=== PATIENT | female | born 1990 | race Caucasian/White ===

== ENCOUNTER 2020-12-16 23:34 | Emergency (ER) | payer OTHER ==
[2020-12-17 01:21] LABS: Urine Blood Negative (Negative); Urine Glucose Negative (Negative); Urine Protein Negative (Negative); Urine Specific Gravity >=1.030 (1.005-1.030); Urine pH 5.5 (5.0-7.0)
[2020-12-17 01:31] LABS: Urine Specific Gravity/Preg >1.030 (1.005-1.030)
[2020-12-17 02:21] LABS: Absolute Lymphocytes (CBC) 1.2 K/uL (0.7-4.9); Basophils % 0.2 % (0-1.3); Hematocrit 38.3 % (36.0-45.0); Lymphocytes % 17.1 % (15.3-44.8); MPV 9.5 fL (7.6-11.3)
[2020-12-17 02:58] LABS: BUN Blood Urea Nitrogen 6 mg/dL (7-18); Bicarbonate 25 mmol/L (21-32); Glucose Level 100 mg/dL (74-106); HCG, Quantitative 46935 mIU/mL (1-3); Potassium 3.4 mmol/L (3.5-5.1); Sodium Level 138 mmol/L (136-145)
--- NOTE | 2020-12-17 03:08 | EDPHYS ---
Physician Documentation [facility] Name: Jose Wylie Age: 30 yrs Sex: Female : 1990 Arrival Date: 12/16/2020 Time: 23:37 Bed 8 Private MD: ED Physician Adelfo Young HPI: 12/17 02:11 This 30 yrs old Female presents to ER via Ambulatory with complaints of mh7 Abdominal Cramping, +Preg <12 weeks. 02:11 The patient presents to the emergency department with abdominal pain, of the suprapubic mh7 area, right lower quadrant and left lower quadrant, that started yesterday, described as crampy, intermittent, waxing/waning. The estimated gestational age is 10 weeks. course: care: at a clinic, Leakage of Fluid: none appreciated, Ultrasound: the patient had an ultrasound, Risk/complications: previous complications- multiple miscarriages. Previous pregnancies: in previous pregnancies patient has had. Associated signs and symptoms: Pertinent positives: nausea, Pertinent negatives: chest pain, diarrhea, dysuria, fever, frequency, ruptured membranes, seizure, shortness of breath, vaginal bleeding, vaginal discharge, vomiting. 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 - Social history:: Smoking status: Patient denies any tobacco usage or history of. ROS: 12/17 02:11 Constitutional: Negative for fever, chills, and weight loss, Eyes: Negative for injury, mh7 pain, redness, and discharge, ENT: Negative for injury, pain, and discharge, Neck: Negative for injury, pain, and swelling, Cardiovascular: Negative for chest pain, palpitations, and edema, Respiratory: Negative for shortness of breath, cough, wheezing, and pleuritic chest pain, Back: Negative for injury and pain, : Negative for injury, bleeding, discharge, and swelling, MS/Extremity: Negative for injury and deformity, Skin: Negative for injury, rash, and discoloration, Neuro: Negative for headache, weakness, numbness, tingling, and seizure, Psych: Negative for depression, anxiety, suicide ideation, homicidal ideation, and hallucinations, Allergy/Immunology: Negative for hives, rash, and allergies, Endocrine: Negative for neck swelling, polydipsia, polyuria, polyphagia, and marked weight changes, Hematologic/Lymphatic: Negative for swollen nodes, abnormal bleeding, and unusual bruising. Exam: 02:11 Constitutional: This is a well developed, well nourished patient who is awake, alert, mh7 and in no acute distress. Head/Face: Normocephalic, atraumatic. Eyes: Pupils equal round and reactive to light, extra-ocular motions intact. Lids and lashes normal. Conjunctiva and sclera are non-icteric and not injected. Cornea within normal limits. Periorbital areas with no swelling, redness, or edema. Neck: Trachea midline, no thyromegaly or masses palpated, and no cervical lymphadenopathy. Supple, full range of motion without nuchal rigidity, or vertebral point tenderness. No Meningismus. Chest/axilla: Normal chest wall appearance and motion. Nontender with no deformity. No lesions are appreciated. Cardiovascular: Regular rate and rhythm with a normal S1 and S2. No gallops, murmurs, or rubs. Normal PMI, no JVD. No pulse deficits. Respiratory: Lungs have equal breath sounds bilaterally, clear to auscultation and percussion. No rales, rhonchi or wheezes noted. No increased work of breathing, no retractions or nasal flaring. Abdomen/GI: Soft, non-tender, with normal bowel sounds. No distension or tympany. No guarding or rebound. No evidence of tenderness throughout. Back: No spinal tenderness. No costovertebral tenderness. Full range of motion. Skin: Warm, dry with normal turgor. Normal color with no rashes, no lesions, and no evidence of cellulitis. MS/ Extremity: Pulses equal, no cyanosis. Neurovascular intact. Full, normal range of motion. Neuro: Awake and alert, GCS 15, oriented to person, place, time, and situation. Cranial nerves II-XII grossly intact. Motor strength 5/5 in all extremities. Sensory grossly intact. Cerebellar exam normal. Normal gait. Psych: Awake, alert, with orientation to person, place and time. Behavior, mood, and affect are within normal limits. Vital Signs: 12/16 23:56 BP 151 / 90; Pulse 99; Resp 18; Temp 98; Pulse Ox 99% ; Weight 116.57 kg; Height 5 ft. ea 6 in. (167.64 cm); 12/17 01:30 BP 125 / 89; Pulse 75; Resp 17; Pulse Ox 100% ; rr5 02:32 BP 116 / 75; Pulse 79; Resp 16; Pulse Ox 100% ; rr5 03:19 BP 116 / 72; Pulse 70; Resp 16; Pulse Ox 98% ; rr5 12/16 23:56 Body Mass Index 41.48 (116.57 kg, 167.64 cm) ea MDM: 03:04 Differential diagnosis: threatened Ab, inevitable Ab, complete Ab, retained Ab, septic mh7 Ab, missed Ab, ectopic , Pain of . Data reviewed: vital signs, nurses notes, lab test result(s), Beta HCG: CBC, electrolytes, urinalysis, radiologic studies, ultrasound. Data interpreted: Pulse oximetry: on room air is 100 %. Interpretation: normal. Counseling: I had a detailed discussion with the patient and/or guardian regarding: the historical points, exam findings, and any diagnostic results supporting the discharge/admit diagnosis, lab results, radiology results, the need for outpatient follow up, an OB/Gyne specialist, to return to the emergency department if symptoms worsen or persist or if there are any questions or concerns that arise at home. Response to treatment: the patient's symptoms have resolved after treatment, the patient's blood pressure is in an acceptable range, mental status has returned to baseline, the patient no longer shows bradycardia, the patient is not short of breath, the patient is not tachycardic, the patient's pain is gone, the patient's temperature has normalized. Refusal of service: The patient/guardian displays adequate decision making capability and despite a detailed discussion of alternatives, benefits, risks, and consequences refuses: Medications. 03:08 Patient medically screened. [facility] 12/17 01:21 Order name: Urine Dipstick-Ancillary; Complete Time: 02:38 [facility] 12/17 01:23 Order name: Abo/rh Typing; Complete Time: 02:38 [facility] 12/17 01:23 Order name: Basic Metabolic Panel; Complete Time: 03:02 [facility] 12/17 01:23 Order name: CBC with Diff; Complete Time: 02:38 [facility] 12/17 01:23 Order name: Urine --Ancillary (enter results); Complete Time: 02:38 [facility] 12/17 01:23 Order name: HCG-Quantitative; Complete Time: 03:02 [facility] 12/17 01:23 Order name: IV Saline Lock; Complete Time: 02: [facility] 12/17 01:23 Order name: Labs collected and sent; Complete Time: 02: [facility] 12/17 01:23 Order name: NPO; Complete Time: 02: [facility] 12/17 01:23 Order name: Urine Dipstick-Ancillary (obtain specimen); Complete Time: : [facility] 12/17 01:23 Order name: Urine Test (obtain specimen); Complete Time: : [facility] 12/17 01:23 Order name: US Transvaginal Ob [facility] Administered Medications: No medications were administered Disposition: 12/17/20 03:08 Discharged to Home. Impression: Pelvic Pain, , Nausea. - Condition is Stable. - Discharge Instructions: Abdominal Pain During , [id number]-th-Jbjo, Nausea, Adult, [id number]. - Prescriptions for Zofran ODT 4 mg Oral tablet,disintegrating - place 1 tablet by TRANSLINGUAL route every 8 hours As needed; 6 tablet. - Medication Reconciliation Form, Thank You Letter, Antibiotic Education, Prescription Opioid Use form. - Follow up: Private Physician; When: 1 - 2 days; Reason: Worsening of condition, Recheck today's complaints, Continuance of care, Re-evaluation by your physician. - Problem is new. - Symptoms have improved. Signatures: Dispatcher [employer] EDNC Annalisa Bustamante RN RN ea [place], MyKena mw2 Peng Miles RN RN rr5 Adelfo Young MD MD 7 Corrections: (The following items were deleted from the chart) 01:24 01:23 Urine Dipstick-Ancillary ordered. [facility] mw2 03:09 03:08 12/17/2020 03:08 Discharged to Home. Impression: Pelvic Pain, . [facility] Condition is Stable. Forms are Medication Reconciliation Form, Thank You Letter, Antibiotic Education, Prescription Opioid Use. Follow up: Private Physician; When: 1 - 2 days; Reason: Worsening of condition, Recheck today's complaints, Continuance of care, Re-evaluation by your physician. Problem is new. Symptoms have improved. 7 03:22 03:09 12/17/2020 03:08 Discharged to Home. Impression: Pelvic Pain, ; Nausea. rr5 Condition is Stable. Discharge Instructions: Abdominal Pain During , Oabb-nq-Wrph, Nausea, Adult, Ttao-dx-Djbz. Prescriptions for Zofran ODT 4 mg Oral tablet,disintegrating - place 1 tablet by TRANSLINGUAL route every 8 hours As needed; 6 tablet. and Forms are Medication Reconciliation Form, Thank You Letter, Antibiotic Education, Prescription Opioid Use. Follow up: Private Physician; When: 1 - 2 days; Reason: Worsening of condition, Recheck today's complaints, Continuance of care, Re-evaluation by your physician. Problem is new. Symptoms have improved. 7
--- NOTE | 2020-12-17 03:08 | ER ---
Nurse's Notes [facility] Name: Jose Wylie Age: 30 yrs Sex: Female : 1990 Arrival Date: 12/16/2020 Time: 23:37 Bed 8 Private MD: Diagnosis: Pelvic Pain, ;Nausea Presentation: 12/16 23:56 Chief complaint: Patient states: Pt complaining of cramping that started off and on ea today denies any vaginal bleeding. Pt reports this is her 7th she has 3 living children and has had three miscarriages. Coronavirus screen: At this time, the client does not indicate any symptoms associated with coronavirus-19. Ebola Screen: No symptoms or risks identified at this time. Initial Sepsis Screen: Does the patient meet any 2 criteria? No. Patient's initial sepsis screen is negative. Does the patient have a suspected source of infection? No. Patient's initial sepsis screen is negative. Risk Assessment: Do you want to hurt yourself or someone else? Patient reports no desire to harm self or others. Onset of symptoms was December 16, 2020. 23:56 Method Of Arrival: Ambulatory ea 23:56 Acuity: ELOINA 3 ea Triage Assessment: 23:59 General: Appears uncomfortable, Behavior is appropriate for age. GI: Abdomen is round. 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 - Social history:: Smoking status: Patient denies any tobacco usage or history of. Screenin:58 Abuse screen: Denies threats or abuse. Nutritional screening: No deficits noted. ea Tuberculosis screening: No symptoms or risk factors identified. Fall Risk None identified. Assessment: 12/17 00:06 General: Appears in no apparent distress. comfortable, Behavior is calm, cooperative, rr5 appropriate for age. Pain: Complains of pain in abdomen Quality of pain is described as crampy, Pain began gradually, Is intermittent. Neuro: Level of Consciousness is awake, alert, obeys commands, Oriented to person, place, time. Cardiovascular: Capillary refill < 3 seconds Patient's skin is warm and dry. Respiratory: Airway is patent Respiratory effort is even, unlabored, Respiratory pattern is regular, symmetrical. GI: Abdomen is round Abd is soft. GI: : Reports cramping. EENT: No signs and/or symptoms were reported regarding the EENT system. Derm: Skin is intact, Skin temperature is warm. Musculoskeletal: Capillary refill < 3 seconds. 01:00 Reassessment: Patient appears in no apparent distress at this time. Patient is alert, rr5 oriented x 3, equal unlabored respirations, skin warm/dry/pink. awaiting to be seen. 02:00 Reassessment: Patient appears in no apparent distress at this time. Patient and/or rr5 family updated on plan of care and expected duration. Pain level reassessed. Patient is alert, oriented x 3, equal unlabored respirations, skin warm/dry/pink. 03:20 Reassessment: Patient appears in no apparent distress at this time. Patient is alert, rr5 oriented x 3, equal unlabored respirations, skin warm/dry/pink. discharge instruction given and explained without complaints made. Vital Signs: 12/16 23:56 BP 151 / 90; Pulse 99; Resp 18; Temp 98; Pulse Ox 99% ; Weight 116.57 kg; Height 5 ft. ea 6 in. (167.64 cm); 12/17 01:30 BP 125 / 89; Pulse 75; Resp 17; Pulse Ox 100% ; rr5 02:32 BP 116 / 75; Pulse 79; Resp 16; Pulse Ox 100% ; rr5 03:19 BP 116 / 72; Pulse 70; Resp 16; Pulse Ox 98% ; rr5 12/16 23:56 Body Mass Index 41.48 (116.57 kg, 167.64 cm) ea ED Course: 12/16 23:37 Patient arrived in ED. bp1 23:58 Triage completed. ea 23:59 Peng Miles RN is Primary Nurse. rr5 12/17 00:11 Adelfo Young MD is Attending Physician. mh7 01:00 Patient has correct armband on for positive identification. Bed in low position. Call rr5 light in reach. Pulse ox on. NIBP on. 01:00 Arm band placed on right wrist. rr5 01:30 Inserted saline lock: 20 gauge in right antecubital area, using aseptic technique. rr5 02:55 US Transvaginal Ob In Process Unspecified. EDMS 02:56 Ultrasound completed. Patient tolerated well. Notified ED Physician . sg3 03:21 No provider procedures requiring assistance completed. IV discontinued, intact, rr5 bleeding controlled, No redness/swelling at site. Pressure dressing applied. Administered Medications: No medications were administered Outcome: 03:08 Discharge ordered by . parrish 03:21 Discharged to home ambulatory, with family. rr5 03:21 Condition: stable 03:21 Discharge instructions given to patient, Instructed on discharge instructions, follow up and referral plans. medication usage, Demonstrated understanding of instructions, follow-up care, medications, Prescriptions given X 1. 03:22 Patient left the ED. rr5 Signatures: Dispatcher [employer] Annalisa Villarreal RN Marilia Levi ea sg3 Peng Miles RN RN rr5 Trisha Orozco Maurice, MD MD 7 Corrections: (The following items were deleted from the chart) 00:08 06/12 23:56 Chief complaint: Patient states: Pt complaining of cramping that started rr5 off and on today denies any vaginal bleeding. Pt reports this is her 7th she has 3 living children and has had three miscarriages ea
[2020-12-17 03:30] VITALS: TEMP 98
[2020-12-17 03:34] VITALS: BP 116/72; O2SAT 98
--- NOTE | 2020-12-17 12:01 | RAD REPORT ---
EXAM DESCRIPTION: US - Transvaginal OB - 12/17/2020 2:56 am CLINICAL HISTORY: ABD CRAMPING, COMPARISON: No comparisons FINDINGS: A single gestational sac is seen within the uterus. The shape of the sac is within normal limits for gestational age. Within the sac is a single pole with crown-rump length of 4.2 cm, c orrelating to estimated gestational age of 10 weeks 5 days. Estimated date of delivery is 07/10/2021. Heart rate is 165 BPM. The placenta is not yet developed due to early gestational age. The maternal adnexa are within normal limits. Right ovary is normal with normal blood flow. Left ovar y is obscured by bowel gas. IMPRESSION: Single live early intrauterine gestation with estimated gestational age of 10 weeks and 5 days, JUSTIN 07/10/2021.
== END 2020-12-17 03:22 | disposition home or self-care (01) ==
LOC: ER 23:34
DX: O26.891 Other specified pregnancy related conditions, first trimester (principal); Z3A.10 10 weeks gestation of pregnancy
CPT/HCPCS: 36415; 76817; 80048; 81003; 81025; 84702; 85025; 86900; 86901; 99284